=== PATIENT | female | born 1990 | race American Indian/Alaskan Native ===

== ENCOUNTER 2017-09-24 00:25 | Outpatient (CLI) | payer OTHER ==
[2017-09-24 02:53] VITALS: BP 114/70
[2017-09-24] MEDS ORDERED: VISTARIL PO ONE (03:31)
== END 2017-09-24 04:15 | disposition home or self-care (01) ==
LOC: TRG 00:25
PROVIDERS: ATTEND Obstetrics & Gynecology
DX: O47.1 False labor at or after 37 completed weeks of gestation (principal); Z3A.40 40 weeks gestation of pregnancy
CPT/HCPCS: 59025; Q0177